=== PATIENT | female | born 1975 | race Caucasian/White ===

== ENCOUNTER → 2020-03-07 | Outpatient (CLI) | payer BC ==
[~2020-03-07] MED LIST: CYCL10 PO; HYDACE5 PO; HYDACE5325 PO; IBUP400 PO
== END | disposition home or self-care (01) ==
LOC: LAB SHORT 12:32 → LAB EV 12:32
DX: J02.9 Acute pharyngitis, unspecified (principal); R05 Cough
CPT/HCPCS: 87081; U0002

== ENCOUNTER → 2021-08-17 | Outpatient (CLI) | payer BC ==
[2021-08-17 12:07] LABS: BASOPHILS ABSOLUTE AUTO 0.01 K/mm3 (0.00-0.23); BASOPHILS PERCENT AUTO 0 % (0-2); EOSINOPHILS ABSOLUTE AUTO 0.01 K/mm3 (0.00-0.68); EOSINOPHILS PERCENT AUTO 0 % (0-6); Hematocrit 34.6 % (33.0-51.0); Hemoglobin 10.1 g/dL (11.5-16.0); IMMATURE GRAN ABSOLUTE AUTO 0.01 K/mm3 (0.00-0.10); IMMATURE GRAN PERCENT AUTO 0 % (0-1); LYMPHOCYTES ABSOLUTE AUTO 0.78 K/mm3 (0.84-5.20); LYMPHOCYTES PERCENT AUTO 26 % (21-46); MONOCYTES PERCENT AUTO 7 % (4-13); Mean Corpuscular HGB 20.2 pg (26.0-34.0); Mean Corpuscular HGB Conc 29.2 g/dL (31.5-36.5); Mean Corpuscular Volume 69 fL (80-100); NEUTROPHILS ABSOLUTE AUTO 1.94 K/mm3 (1.96-9.15); NEUTROPHILS PERCENT AUTO 66 % (41-73); Platelet Count 226 K/mm3 (150-400); RDW Coefficient Variation 18.1 % (11.7-14.2); RDW Standard Deviation 43.9 fL (35.1-46.3); White Blood Cell Count 2.95 K/mm3 (4.00-11.30)
[2021-08-17 12:16] LABS: Alanine Aminotransfer (ALT/SGP 23 U/L (12-78); Albumin, Blood 3.4 g/dL (3.4-5.0); Albumin/Globulin Ratio 0.7 (0.8-1.8); Alk Phos 76 U/L (40-126); Anion Gap 13 mmol/L (6-16); Aspartate Aminotrans (AST/SGOT 26 U/L (12-37); Bilirubin, Total 0.2 mg/dL (0.1-1.0); Blood Urea Nitrogen 7 mg/dL (8-24); Bun/Creatinine Ratio 9.9 (12.0-20.0); CO2, Blood 26 mmol/L (21-32); Calcium, Blood 8.2 mg/dL (8.5-10.1); Chloride, Blood 98 mmol/L (98-108); Creatinine, Blood 0.71 mg/dL (0.40-1.00); Globulin, Blood 5.2 g/dL (2.2-4.0); Glomerular Filtration Rate >60 (60-); Glucose, Blood 97 mg/dL (70-99); Potassium, Blood 3.4 mmol/L (3.5-5.5); Sodium, Blood 137 mmol/L (136-145); Total Protein, Blood 8.6 g/dL (6.4-8.2)
== END | disposition home or self-care (01) ==
LOC: LAB 12:01 → LAB SHORT 12:01
PROVIDERS: Physician Assistant
DX: U07.1 COVID-19 (principal)
CPT/HCPCS: 80053; 85025

== ENCOUNTER 2025-03-22 13:44 | Emergency (ER) | payer BC ==
[~2025-03-22] VITALS: Ht 162.6 cm; Wt 56.7 kg
[2025-03-22] MEDS ORDERED: NS 1,000 ML IV SCH (16:00)
[2025-03-22 20:30] VITALS: BP 122/81
== END 2025-03-22 20:53 | disposition home or self-care (01) ==
LOC: ER 13:44
DX: D64.9 Anemia, unspecified (principal); Z88.2 Allergy status to sulfonamides
CPT/HCPCS: 36430; 86850; 86900; 86901; 86923; 99283; J7030; P9016

== ENCOUNTER → 2025-03-22 | Outpatient (CLI) | payer BC ==
[2025-03-22 12:47] LABS: BASOPHILS ABSOLUTE AUTO 0.04 K/mm3 (0.00-0.23); BASOPHILS PERCENT AUTO 0 % (0-2); EOSINOPHILS ABSOLUTE AUTO 0.07 K/mm3 (0.00-0.68); EOSINOPHILS PERCENT AUTO 1 % (0-6); Hematocrit 19.4 % (33.0-51.0); IMMATURE GRAN ABSOLUTE AUTO 0.03 K/mm3 (0.00-0.10); IMMATURE GRAN PERCENT AUTO 0 % (0-1); LYMPHOCYTES ABSOLUTE AUTO 1.67 K/mm3 (0.84-5.20); LYMPHOCYTES PERCENT AUTO 18 % (21-46); MONOCYTES ABSOLUTE AUTO 0.53 K/mm3 (0.16-1.47); MONOCYTES PERCENT AUTO 6 % (4-13); Mean Corpuscular HGB 21.2 pg (26.0-34.0); Mean Corpuscular HGB Conc 28.4 g/dL (31.5-36.5); Mean Corpuscular Volume 75 fL (80-100); Mean Platelet Volume 9.3 fL (9.1-12.4); NEUTROPHILS ABSOLUTE AUTO 7.22 K/mm3 (1.96-9.15); NEUTROPHILS PERCENT AUTO 76 % (41-73); Platelet Count 385 K/mm3 (150-400); RDW Coefficient Variation 19.1 % (11.7-14.2); RDW Standard Deviation 52.9 fL (35.1-46.3); Red Blood Cell Count 2.59 M/mm3 (3.80-5.20); White Blood Cell Count 9.56 K/mm3 (4.00-11.30)
[2025-03-22 12:56] LABS: Bun/Creatinine Ratio 22.2 (12.0-20.0); Calcium, Blood 8.9 mg/dL (8.5-10.1); Creatinine, Blood 0.54 mg/dL (0.40-1.00); Potassium, Blood 3.6 mmol/L (3.5-5.5)
[2025-03-22 12:58] LABS: Hemoglobin 5.5 g/dL (11.5-16.0)
[2025-03-22 17:39] LABS: Percent Saturation 1.6 % (15.0-50.0)
== END ==
LOC: LAB SHORT 12:43 → LAB 12:43
PROVIDERS: Obstetrics & Gynecology; Physician Assistant Medical
DX: N93.9 Abnormal uterine and vaginal bleeding, unspecified (principal); R53.83 Other fatigue
CPT/HCPCS: 80048; 82728; 83540; 83550; 84443; 85025

== ENCOUNTER 2025-05-20 06:06 | Day surgery (SDC) | payer BC ==
[~2025-05-20] VITALS: Ht 162.6 cm; Wt 56.6 kg
[~2025-05-20 06:06] MED LIST changes: +Lactated Ringer's 1,000 ML IV ONE
[2025-05-20] MEDS ORDERED: MEDR10 PO (06:56)
[2025-05-20] MEDS ORDERED: Iron Chews15 MG PO (06:57)
[2025-05-20] MEDS ORDERED: VITAMIN D (06:57)
[2025-05-20] MEDS ORDERED: Lactated Ringer's 1,000 ML IV ONE (07:09)
[2025-05-20] MEDS ORDERED: Ondansetron HCl 2 MG / ML 2ML Vial ONE (07:10)
[2025-05-20] MEDS ORDERED: FentaNYL Citrate 50 MCG/ML 2 ML Injection ONE (07:10)
[2025-05-20] MEDS ORDERED: Dexamethasone Sod Phos 10 MG/ML 1ML VIAL ONE (07:10)
[2025-05-20] MEDS ORDERED: propofoL 20 ML IV ONE (07:11)
--- NOTE | 2025-05-20 08:07 | NUR ---
05/20/25 0807 Rocio Mcdaniel NORMAL SALINE FLUID DEFICIT OF 50 MLS. DRS NOTIFIED.
--- NOTE | 2025-05-20 08:18 | NUR ---
05/20/25 0818 Barb Womack 0813 - Pt to PACU, BPs soft, Anesthesia at bedside, aware, okay if MAPs > 65
[2025-05-20 08:38] VITALS: BP 130/78
--- NOTE | 2025-05-20 08:39 | NUR ---
05/20/25 0839 Barb Womack 0837 - Transfer to Step Down. Pt A&O, VSS, rates abd cramping 04/03.
[2025-05-20] MEDS ORDERED: OxyCODONE 5 mg/Acetamin 325 mg TABLET ONE (09:22)
== END 2025-05-20 09:46 | disposition home or self-care (01) ==
LOC: ORSCSDS 06:06
PROVIDERS: Obstetrics & Gynecology
PROC: 0U5B8ZZ Destruction of Endometrium, Via Natural or Artificial Opening Endoscopic (ICD-10-PCS; principal; 2025-05-20 07:30)
DX: N93.9 Abnormal uterine and vaginal bleeding, unspecified (principal); D50.0 Iron deficiency anemia secondary to blood loss (chronic)
CPT/HCPCS: 84703; 88305; A9270; J1100; J2405; J2704; J3010; J7120